=== PATIENT | male | born 1985 | race Caucasian/White ===

== ENCOUNTER 2023-12-20 22:27 | Emergency (ER) | payer OTHER, SELFPAY ==
--- NOTE | ~2023-12-20 | XR_ITS ---
EXAMINATION: XR HAND, LEFT CLINICAL INFORMATION: Pain, injury COMPARISON: None available. TECHNIQUE: PA, lateral, and oblique views of the left hand. FINDINGS: Alignment is normal and the wrist and hand. No fracture or subluxation. The bones, joints and soft tissues of the hand and wrist are unremarkable. XR/XR hand LT min 3V IMPRESSION: No acute osseous injury in the left hand.
[2023-12-20 22:57] VITALS: BP 141/90; PULSE 79; RESP 18; TEMP 36.9; O2SAT 98; BMI 19.0
[2023-12-21 02:32] VITALS: BP 135/94; PULSE 68; RESP 15; TEMP 36.9; O2SAT 96
--- OUTSIDE RECORDS SUMMARY | 2023-12-21 02:42 | XMS_ITS | Continuity of Care Document ---
Author Organization [facility] Address [address] [place] [address]- Care Team Providers Care Curb Worker Name Role Phone Therese Holguin NP Primary Care Physician [phone] Encounter [facility] Date(s): 03/23/21 - 04/22/21 [facility] [address] [place] [address]- Immunizations Given and Recorded Vaccine Date Status Refusal Reason SARS-CoV-2 (COVID-19) mRNA-1273 vaccine 07/27/20 R ecorded SARS-CoV-2 (COVID-19) mRNA-1273 vaccine 06/29/20 R ecorded Problem List Condition Effective Dates Status Health Status Inform ant ADHD(Confirmed) Active Chest pain in adult(Confirmed) Active Dysphagia(Confirmed) Active Shortness of breath(Confirmed) Active Hx of pancreatitis(Confirmed) Active Hx of viral pericarditis(Confirmed) 1 Active History of substance abuse(Confirmed) Active Impaired fasting glucose(Confirmed) Active Anxiety with depression(Confirmed) Active Testicular pain(Confirmed) 2 Active Screening for STDs (sexually transmitted diseases)(Confirmed) Active Encounter to establish care(Confirmed) Active Smoker(Confirmed) Active 1viral 2Chronic Social History Social History Type Response Tobacco Use: vapes. Sex
--- OUTSIDE RECORDS SUMMARY | 2023-12-21 02:42 | XMS_ITS | Continuity of Care Document ---
Author Organization [facility] Mateus Reynoso Heath lt Address [address] [place] [address]- Care Team Providers Care Car Jockey Name Role Phone Ghazala Cuello Primary Care Physi clinton Encounter [facility] R [id number] Date(s): 01/05/22 - 01/12/22 [facility] Adult [address] [place] [address]- Attending Physician: Ghazala Cuello Referring Physician: Steven Baldwin MD Immunizations Given and Recorded Vaccine Date Status Refusal Reason tetanus/diphtheria/pertussis, acel(Tdap) 1 01/05/22 Given SARS-CoV-2 (COVID-19) mRNA-1273 vaccine 07/27/20 R ecorded SARS-CoV-2 (COVID-19) mRNA-1273 vaccine 06/29/20 R ecorded 1Result Comment: [facility] [id number] Problem List Condition Effective Dates Status Health [...] establish care(Confirmed) Active Smoker(Confirmed) Active 1viral 2Chronic Vital Signs Most recent to oldest [Reference Range]: 1 Height 172 cm (01/05/22 7:54 AM) Weight 59.0 kg (01/05/22 7:54 AM) Oxygen Saturation [94-100 %] 100 % (01/05/22 7:54 AM) Pulse Rate [55-90 bpm] 66 bpm (01/05/22 7:54 AM) Body Mass Index [18.5-24.99] 19.94 (01/05/22 7:54 AM) Blood Pressure [90-138/55-84 mm Hg] 107/ 75mm Hg (01/05/22 7:54 AM) Blood pressure sites Arm, right (01/05/22 7:54 AM) Weight Obtained Via Standing scale (01/05/22 7:54 AM) Social History Social History Type Response Tobacco Use: vapes. Sex
--- OUTSIDE RECORDS SUMMARY | 2023-12-21 02:42 | XMS_ITS | Continuity of Care Document ---
Author Organization [facility] Edgardo Heath lt Address [address] [place] [address]- Care Team Providers Care First Cook Name Role Phone Therese Holguin NP Primary Care Physician [phone] Encounter [facility] Date(s): 03/08/21 - 03/15/21 [facility] Adult [address] [place] [address]- Encounter Diagnosis Impaired fasting glucose(Discharge Diagnosis) - 03/08/21 Hx of pancreatitis(Discharge Diagnosis) - 03/08/21 Hx of viral pericarditis(Discharge Diagnosis) - 03/08/21 Smoker(Discharge Diagnosis) - 03/08/21 Screening for STDs (sexually transmitted diseases)(Discharge Diagnosis) - 03/08/21 Anxiety with depression(Discharge Diagnosis) - 03/08/21 ADHD(Discharge Diagnosis) - 03/08/21 Attending Physician: Therese Holguin NP Immunizations Given and Recorded Vaccine Date Status Refusal Reason SARS-CoV-2 (COVID-19) mRNA-1273 vaccine 07/27/20 R ecorded SARS-CoV-2 (COVID-19) mRNA-1273 vaccine 06/29/20 R ecorded Problem List Condition Effective Dates Status Health Status Inform ant Hx of viral pericarditis(Confirmed) 1 Active 1viral Diagnosis Diagnosis Type Effective Dates Health Status Clinical Service Informant Impaired fasting glucose Discharge Diagnosis 03/08/21 Hx of pancreatitis Discharge Diagnosis 03/08/21 Hx of viral pericarditis Discharge Diagnosis 03/08/21 Smoker Discharge Diagnosis 03/08/21 Screening for STDs (sexually transmitted diseases) Discharge Diagnosis 03/08/21 Anxiety with depression Discharge Diagnosis 03/08/21 ADHD Discharge Diagnosis 03/08/21 Vital Signs Most recent to oldest [Reference Range]: 1 Height 172 cm (03/08/21 1:58 PM) Weight 64.0 kg (03/08/21 1:58 PM) Oxygen Saturation [94-100 %] 98 % (03/08/21 1:58 PM) Pulse Rate [55-90 bpm] 94 bpm *H* (03/08/21 1:58 PM) Body Mass Index [18.5-24.99] 21.63 (03/08/21 1:58 PM) Blood Pressure [90-138/55-84 mm Hg] 120/ 79mm Hg (03/08/21 1:58 PM) Temperature [96.8-100.4 DegF] 98.9 DegF (03/08/21 1:58 PM) Blood pressure sites Arm, right (03/08/21 1:58 PM) Temperature Route Oral (03/08/21 1:58 PM)
--- OUTSIDE RECORDS SUMMARY | 2023-12-21 02:42 | XMS_ITS | Continuity of Care Document ---
Author Organization [facility] Address [address] [place] [address]- Care Team Providers Care Film Casting Operator Name Role Phone Ghazala Cuello Primary Care Physi clinton Encounter [facility] Date(s): 04/25/23 - 05/25/23 [facility] Adult [address] [place] [id number] Allergies, Adverse Reactions, Alerts No Known Medication Allergies Immunizations Given and Recorded Vaccine Date Status Refusal Reason influenza virus vaccine, inactivated 03/24/23 Give n Meningococcal Conjugate Vaccine 01/18/22 Recorded tetanus/diphtheria/pertussis, acel(Tdap) 1 01/05/22 Given SARS-CoV-2 (COVID-19) mRNA-1273 vaccine 07/27/20 R ecorded SARS-CoV-2 (COVID-19) mRNA-1273 vaccine 06/29/20 R ecorded 1Result Comment: [facility] [id number] Problem List Condition Confirmation Course Effective Dates Status Health [facility] Informant ADHD Confirmed Active History of substance abuse Confirmed Active Anxiety with depression Confirmed Active Smoker Confirmed Active Social History Social History Type Response Tobacco Use: vapes. Sex Patient Care team information Care Team Personnel Name: Ghazala Cuello Position: S PCO Associate Professional Member Role: PCP Address: Address: [address] [place] [address] [place] [address]- Care Team Related Persons Name: ROSCOE JENNINGS
--- OUTSIDE RECORDS SUMMARY | 2023-12-21 02:42 | XMS_ITS | Continuity of Care Document ---
Author Organization [facility] Address [address] [place] [address]- Care Team Providers Care Sterile Supply Technician Name Role Phone Ghazala Cuello Primary Care Physi clinton Encounter [facility] Date(s): 02/24/23 - 03/26/23 [facility] Adult [address] [place] [id number] Allergies, Adverse Reactions, Alerts No Known Medication Allergies Immunizations Given and Recorded Vaccine Date Status Refusal Reason influenza virus vaccine, inactivated 03/24/23 Give n Meningococcal Conjugate Vaccine 01/18/22 Recorded tetanus/diphtheria/pertussis, acel(Tdap) 1 01/05/22 Given SARS-CoV-2 (COVID-19) mRNA-1273 vaccine 07/27/20 R ecorded SARS-CoV-2 (COVID-19) mRNA-1273 vaccine 06/29/20 R ecorded 1Result Comment: [facility] [id number] Problem List Condition Confirmation Course Effective Dates Status Health [facility] Informant ADHD Confirmed Active History of substance abuse Confirmed Active Anxiety with depression Confirmed Active Smoker Confirmed Active Social History Social History Type Response Tobacco Use: vapes. Sex Patient Care team information Care Team Personnel Name: Ghazala Cuello Position: S PCO Associate Professional Member Role: PCP Address: Address: [address] [place] [address] [place] [address]- Care Team Related Persons Name: ROSCOE JENNINGS
--- OUTSIDE RECORDS SUMMARY | 2023-12-21 02:42 | XMS_ITS | Continuity of Care Document ---
Author Organization [facility] Edgardo Heath lt Address [address] [place] [address]- Care Team Providers Care Research Worker Kitchen Name Role Phone Therese Holguin NP Primary Care Physician Encounter [facility] Date(s): 11/04/21 - 12/04/21 [facility] Adult [address] [place] [address]- Immunizations Given and Recorded Vaccine Date Status [...]
--- OUTSIDE RECORDS SUMMARY | 2023-12-21 02:42 | XMS_ITS | Continuity of Care Document ---
Author Organization [facility] Mateus Reynoso Heath lt Address [address] [place] [address]- Care Team Providers Care Farmworker General Name Role Phone Chelsie JACKSON, Therese Primary Care Physician [phone] Encounter [facility] Date(s): 03/22/21 - 03/29/21 [facility] Adult [address] [place] [address]- Encounter Diagnosis Shortness of breath(Discharge Diagnosis) - 03/22/21 Attending Physician: Therese Holguin NP Referring Physician: Steevn Baldwin MD Immunizations Given and Recorded Vaccine Date Status Refusal Reason SARS-CoV-2 (COVID-19) mRNA-1273 vaccine 07/27/20 R ecorded SARS-CoV-2 (COVID-19) mRNA-1273 vaccine 06/29/20 R ecorded Problem List Condition Effective Dates Status Health Status Inform ant ADHD(Confirmed) Active Chest pain in adult(Confirmed) Active Dysphagia(Confirmed) Active Shortness of breath(Confirmed) Active Hx of pancreatitis(Confirmed) Active Hx of viral pericarditis(Confirmed) 1 Active Impaired fasting glucose(Confirmed) Active Anxiety with depression(Confirmed) Active Testicular pain(Confirmed) 2 Active Screening for STDs (sexually transmitted diseases)(Confirmed) Active Encounter to establish care(Confirmed) Active Smoker(Confirmed) Active 1viral 2Chronic Diagnosis Diagnosis Type Effective Dates Health Status Cl inical Service Informant Shortness of breath Discharge Diagnosis 03/22/21 Vital Signs Most recent to oldest [Reference Range]: 1 2 Height 172 cm (03/23/21 2:51 PM) 172 cm (03/22/21 2:40 PM) Weight 63.2 kg (03/23/21 2:51 PM) 63.2 kg (03/22/21 2:40 PM) Oxygen Saturation [94-100 %] 98 % (03/22/21 2:40 PM) Pulse Rate [55-90 bpm] 64 bpm (03/22/21 2:40 PM) Body Mass Index [18.5-24.99] 21.36 (03/22/21 2:40 PM) Blood Pressure [90-138/55-84 mm Hg] 110/ 68mm Hg (03/22/21 2:40 PM) Respiratory Rate [16-30 br/min] 16 br/mi n (03/22/21 2:40 PM) Temperature [96.8-100.4 DegF] 98.0 DegF (03/22/21 2:40 PM) Mode of Delivery (Oxygen) Room air (03/22/21 2:40 PM) Blood pressure sites Arm, right (03/22/21 2:40 PM) Temperature Route Oral (03/22/21 2:40 PM) Weight Obtained Via Standing scale (03/22/21 2:40 PM)
--- OUTSIDE RECORDS SUMMARY | 2023-12-21 02:42 | XMS_ITS | Continuity of Care Document ---
Author Organization [facility] Heath lt Address [address] [place] [address]- Care Team Providers Care Control Clerk Head Name Role Phone Ghazala Cuello Primary Care Physi clinton [place] [facility] [place](s): 02/24/23 - 04/23/23 [facility] Adult [address] [place] [address]- Attending Physician: Ghazala Cuello Allergies, Adverse Reactions, Alerts No Known Medication Allergies Immunizations Given and Recorded Vaccine Date Status Refusal Reason influenza virus vaccine, inactivated 03/24/23 Give n Meningococcal Conjugate Vaccine 01/18/22 Recorded tetanus/diphtheria/pertussis, acel(Tdap) 1 01/05/22 Given SARS-CoV-2 (COVID-19) mRNA-1273 vaccine 07/27/20 R ecorded SARS-CoV-2 (COVID-19) mRNA-1273 vaccine 06/29/20 R ecorded 1Result Comment: [facility] [id number] Problem List Condition Confirmation Course Effective Dates Status Health [facility] Informant ADHD Confirmed Active History of substance abuse Confirmed Active Anxiety with depression Confirmed Active Smoker Confirmed Active Social History Social History Type Response Tobacco Use: vapes. Sex Patient Care team information Care Team Personnel Name: Ghazala Cuello Position: S PCO Associate Professional Member Role: PCP Address: Address: [address] [place] [address] [place] [address]- Care Team Related Persons Name: ROSCOE JENNINGS
--- OUTSIDE RECORDS SUMMARY | 2023-12-21 02:42 | XMS_ITS | Continuity of Care Document ---
Author Organization [facility] Mateus Reynoso Heath lt Address [address] [place] [address]- Care Team Providers Care Freight Inspector Name Role Phone Ghazala Cuello Primary Care Physi [facility] Encounter [facility] [place] Date(s): 03/24/23 - 03/31/23 [facility] Adult [address] [place] [address]- Encounter Diagnosis Annual physical exam(Discharge Diagnosis) - 03/24/23 Chronic low back pain with bilateral sciatica(Discharge Diagnosis) - 03/24/23 Attending Physician: Ghazala Cuello Allergies, Adverse Reactions, Alerts No Known Medication Allergies Immunizations Given and Recorded Vaccine Date Status Refusal Reason influenza virus vaccine, inactivated 03/24/23 Give n Meningococcal Conjugate Vaccine 01/18/22 Recorded tetanus/diphtheria/pertussis, acel(Tdap) 1 01/05/22 Given SARS-CoV-2 (COVID-19) mRNA-1273 vaccine 07/27/20 R ecorded SARS-CoV-2 (COVID-19) mRNA-1273 vaccine 06/29/20 R ecorded 1Result Comment: [facility] [id number] Medications No Known Medications Problem List Condition Confirmation Course Effective Dates Status Health St atus Informant ADHD Confirmed Active History of substance abuse Confirmed Active Anxiety with depression Confirmed Active Smoker Confirmed Active Diagnosis Diagnosis Type Effective Dates Health Status inical Service Informant Annual physical exam Discharge Diagnosis 03/24/23 Chronic low back pain with bilateral sciatica Discharge Diagnosis 03/24/23 Vital Signs Most recent to oldest [Reference Range]: 1 Height 172 cm (03/24/23 8:27 AM) Weight 60.9 kg (03/24/23 8:27 AM) Oxygen Saturation [94-100 %] 100 % (03/24/23 8:27 AM) Pulse Rate [55-90 bpm] 63 bpm (03/24/23 8:27 AM) Body Mass Index [18.5-24.99 kg/m2] 20.59 kg/m2 (03/24/23 8:27 AM) Blood Pressure [90-138/55-84 mm Hg] 112/ 70mm Hg (03/24/23 8:27 AM) Temperature [96.8-100.4 DegF] 98.7 DegF (03/24/23 8:27 AM) Mode of Delivery (Oxygen) Room air (03/24/23 8:27 AM) Blood pressure sites Arm, right (03/24/23 8:27 AM) Temperature Route Oral (03/24/23 8:27 AM) Weight Obtained Via Standing scale (03/24/23 8:27 AM) Social History Social History Type Response Tobacco Use: vapes. Sex Note * Clary Henderson: PERFORM, SIGN, VERIFY Event Display: Patient Education/Instruction Authored Date: [id number] [facility] *BMP Jazmín Madison Clinical Summary Name BG WARD Age 37 Years 1985 PCP Ghazala Cuello PCP Visit Date 03/24/2023 07:45:00 Additional Instructions: Scheduled Appointments?? Future Appointments ?No Future Appointments Scheduled Follow-Up Instructions ?? With: Address: When: Ghazala Cuello Within 1 year Comments: PHY Diagnosis Lumbago with sciatica, right side; Encounter for general adult medical examination without abnormalfindings Medications: Please continue your medications until treatment is completed or stopped by your provider. Discuss any questions related to medications with your provider. Allergy Info:?? No Known Medication Allergies Medications Given This Visit Future Orders ?No future orders Vital Signs Height 172 cm Weight 60.9 kg BMI 20.59 kg/m2 Blood Pressure 112 mm Hg/70 mm Hg Temperature 98.7 DegF Pulse Rate 63 bpm Respiratory Rate 02 Sat Mode of Delivery 100 %/Room air You can now view a summary of your hospital visit from the comfort of your home through a free online portal called ecobee. ecobee is a website that allows you to securely view your medical information including discharge summary, medications and follow-up visits. ??You can alsosend a secure electronic message to your doctor???s office to request appointments, renew medications or just ask a question. You can enroll at [email or web address] or register during your next office visit. Disclaimer:?? The information provided is of a general nature and is intended to be used in conjunction with the recommendations and advice of your health care practitioner. ??Every effort has been made to ensure that the information provided is accurate and complete at the time it is provided to you however, as your needs change, or, as new ??information becomes available, different or additional instructions may be required. If you have questions, please consult with your primary care provider or pharmacist, as appropriate. ??This information is not intended to serve as substitution for assessment and evaluation by a qualified health care provider. If you do not have a primary care provider, you may find a [facility] provider by calling [facility] [employer] Link at [phone]. [facility], in keeping with [facility] guidance, no longer requires face masks for staff, patientsor visitors in most situations. Similar to time spent indoors at other locations, there is the chance that you were exposed to respiratory viruses during your time with us (such as flu or COVID-19).? If you develop symptoms concerning for a viral respiratory infection, please seek testing (and treatment if indicated) from your medical provider or home test kit. For information about the plan of care including goals and instructions for your diagnosis, please see the patient education orders section of this document. Patient Education Materials?? The content of this educational material or handout may have been modified, supplemented, or adapted from its original content and format to support your individualized medical care. 4 Steps for Eating Healthier Changing the way you eat can improve your health. It can lower your cholesterol and blood pressure,and help you stay at a healthy weight. Your diet doesn???t have to be bland and boring to be healthy. Just watch your calories and follow these steps: 1. Eat fewer unhealthy fats ??? Choose more fish and lean meats instead of fatty cuts of meat. ??? Skip butter and lard, and use less margarine. ??? Pass on foods that have palm, coconut, or hydrogenated oils. ??? Eat fewer high-fat dairy foods like cheese, ice cream, and whole milk. ??? Get a heart-healthy cookbook and try some low-fat recipes. 2.??Go light on salt ??? Keep the saltshaker off the table. ??? Limit high-salt ingredients, such as soy sauce, bouillon, and garlic salt. ??? Instead of adding salt when cooking, season your food with herbs and flavorings. Try lemon, garlic, and onion. ??? Limit convenience foods, such as boxed or canned foods and restaurant food. ??? Read food labels and choose lower-sodium options. 3. Limit sugar ??? Pause before you add sugars to pancakes, cereal, coffee, or tea. This includes white and brown table sugar, syrup, honey, and molasses. Cut your usual amount by half. ??? Use non-sugar sweeteners. Stevia, aspartame, and sucralose can satisfy a sweet tooth without adding calories. ??? Swap out sugar-filled soda and other drinks. Buy sugar-free or low-calorie beverages. Remember water is always the best choice. ??? Read labels and choose foods with less added sugar. Keep in mind that dairy foods and foods with fruit will have some natural sugar. ??? Cut the sugar in recipes by 1/3 to 1/2. Boost the flavor with extracts like almond, vanilla, ororange. Or add spices such as cinnamon or nutmeg. 4. Eat??more fiber ??? Eat fresh fruits and vegetables every day. ??? Boost your diet with whole grains. Go for oats, whole-grain rice, and bran. ??? Add beans and lentils to your meals. ??? Drink more water to match your fiber increase. This is to help prevent constipation. ?? 0873-5598 [employer] [place]. [address] [place] [address]. All rights reserved. This information is not intended as a substitute for professional medical care. Always follow your healthcare professional's instructions. Prevention Guidelines, Men Ages 18 to 39 Screening tests and vaccines are an important part of managing your health. Health counseling is essential, too. Below are guidelines for these, for men ages 18 to 39. Talk with your healthcare provider to make sure you???re up-to-date on what you need. Screening Who needs it How often Alcohol misuse All men in this age group At routine exams Blood pressure All men in this age group Every 2 years if your blood pressure is less than 120/80 mm Hg; yearly if your systolic blood pressure is 120 to 139 mm Hg, or your diastolic blood pressure reading is 80 to 89 mm Hg Depression All men in this age group At routine exams Diabetes mellitus, type 2 Adults who have no symptoms but are overweight or obese and have 1 or more other risk factors for diabetes At least every 3 years Hepatitis C If at increased risk At routine exams High cholesterol or triglycerides All men ages 35 and older, and younger men at high risk for coronary artery disease At least every 5 years HIV All men At routine exams Obesity All men in this age group At routine exams Syphilis Men at increased risk for infection ??? talk with your healthcare provider At routine exams Tuberculosis Men at increased risk for infection ??? talk with your healthcare provider Check with your healthcare provider Vision All men in this age group Every 5 to 10 years if no risk factors for eye disease Vaccines1 Who needs it How often Chickenpox (varicella) All men in this age group who have no record of this infection or vaccine 2 doses; the second dose should be given at least 4 weeks after the first dose Hepatitis A Men at increased risk for infection ??? talk with your healthcare provider 2 doses given at least 6 months apart Hepatitis B Men at increased risk for infection ??? talk with your healthcare provider 3 doses over 6 months; second dose should be given 1 month after the first dose; the third dose should be given at least 2 months after the second dose and at least 4 months after the first dose Haemophilus influenzae Type B (HIB) Men at increased risk for infection ??? talk with your healthcare provider 1 to 3 doses Human papillomavirus (HPV4) All men through age 21 years Men ages 22 to 26 who are at risk 3 doses; the second dose should be given 1 to 2 months after the first dose and the third dose given 6 months after the first dose Influenza (flu) All men in this age group Once a year Measles, mumps, rubella (MMR) All men in this age group who have no record of these infections or vaccines 1 or 2 doses through age 55 Meningococcal Men at increased risk for infection ??? talk with your healthcare provider 1 or more doses Pneumococca (PCV13) and Pneumococcal (PPSV23) Men at increased risk for infection ??? talk with your healthcare provider PCV13: 1 dose ages 19 to 65 (protects against 13 types of pneumococcal bacteria) PPSV23: 1 to 2 doses through age 64, or 1 dose at 65 or older (protects against 23 types of pneumococcal bacteria) Tetanus/diphtheria/pertussis (Td/Tdap) booster All men in this age group A one-time Tdap booster after age 18, then Td every10 years Counseling Who needs it How often Diet and exercise Overweight or obese people When diagnosed, and then at routine exams Use of tobacco and the health affects it can cause All men in this age group Every visit Sexually transmitted infection prevention Men who are sexually active At routine exams Skin cancer Prevention of skin cancer in fair-skinned adults through age 24 At routine exams 1Those who are 18 years of age, who are not up-to-date on their childhood immunizations, should receive all appropriate catch-up vaccines recommended by the CDC. ?? 6984-9344 [employer] [place]. [address] [place] [address]. All rights reserved. This information is not intended as a substitute for professional medical care. Always follow your healthcare professional's instructions. Getting a Flu Vaccination The flu (influenza) is caused by a virus that is easily spread. A flu vaccine is your best chance to avoid the flu. The vaccine is given in the form of a shot (injection) or a nasal spray. It???s best to get vaccinated each year when the flu vaccine is available in your area. This can be done at your health care provider???s office or a health clinic. Drugstores, senior centers, and workplaces often offer flu vaccinations, too. If you want to know when the vaccine is available or if you have questions about getting vaccinated, ask your health care provider. Flu facts ??? The flu vaccine will not give you the flu. ??? The flu is caused by a virus. It can???t be treated with antibiotics. ??? The flu can be life-threatening, especially for people in high-risk groups. ??? Influenza is not the same as ???stomach flu,?? the 24-hour bug that causes vomiting and diarrhea. This is most likely due to a GI (gastrointestinal) infection???not the flu. Flu symptoms Flu symptoms tend to come on quickly. Fever, headache, fatigue, cough, sore throat, runny nose, andmuscle aches are symptoms of the flu. Children may have upset stomach or vomiting, but adults usually don???t. Some symptoms, such as fatigue and cough, can last a few weeks. How a flu vaccine protects you There are many strains (types) of flu viruses. Medical experts predict which??strains are most likely to make people sick each year. Flu vaccines??are made from these strains. With the shot, inactivated (???killed?? ) flu viruses are injected into your body. With the nasal spray, live and weakened viruses are sprayed into your nose. The viruses in both vaccines cannot make you sick. But they do prompt the body to make antibodies to fight these flu strains. If you???re exposed to the same strains later in the flu season, the antibodies will fight off the virus. Your health care provider can tell you which type of flu vaccine is right for you. Who should get the flu vaccination? The Centers for Disease Control and Prevention (CDC) recommends that infants over the age of 6 months and all children and adults should get a flu shot every year. Some people are at an increased risk of developing serious complications from the flu. It's extremely important that these people get the vaccine. They include those with: ??? Long-term heart and lung conditions ??? Other serious medical conditions: ??? Endocrine disorders, like diabetes ??? Kidney or liver disorders ??? Weak immune system from disease or medical treatment, for example those with HIV or AIDS or those taking long-term steroids or medications to treat cancer ??? Blood disorders, such as sickle cell disease It is also very important that others that have an increased risk of being exposed to the flu or are around people with increased risk of complications get the vaccine. They are: ??? Health care providers and other staff that provide care in hospitals, nursing homes, home health, and other facilities ??? Household members, including children of people in high-risk groups Types of flu vaccines The flu vaccine is available as a shot and as a nasal spray. Your health care provider will recommend the vaccine that is best for you. ??? The shot is available in a few different forms. There is a high-dose vaccine for those over age65 and a vaccine for those with egg allergies. It's safe for most people. Talk with your provider if you have had: ??? A severe allergic reaction to a previous flu vaccine ??? Guillain-barre syndrome (a severe paralyzing condition) ??? The nasal spray is recommended for people from 2 to 49 years of age. It should not be given to adults who: ??? Are ??? Have weak immune systems ??? Have egg allergies ??? Will be in close contact with someone with a weak immune system ??? Have taken antiviral medication in the past 2 days ?? 7783-1865 [employer] [place]. [address] [place] [address], [place] [address]. All rights reserved. This information is not intended as a substitute for professional medical care. Always follow your healthcare professional's instructions. Patient Care team information Care Team Personnel Name: Ghazala Cuello Position: [facility] PCO Associate Professional Member Role: PCP Address: Address: [address] [place] [id number] Care Team Related Persons Name: ROSCOE JENNINGS
--- OUTSIDE RECORDS SUMMARY | 2023-12-21 02:42 | XMS_ITS | Continuity of Care Document ---
Author Organization [facility] Heath Address [address] [place] [address]- Care Team Providers Care Lodging House Keeper Name Role Phone Ghazala Cuello Primary Care Physi [place] [facility] [place] Date(s): 03/24/23 - 04/23/23 [facility] Adult [address] [place] [id number] Attending Physician: Admtr, Ar8 Admitting Physician: Admtr, Ar8 Referring Physician: Admtr, Ar8 Allergies, Adverse Reactions, Alerts No Known Medication Allergies Immunizations Given and Recorded Vaccine Date Status Refusal Reason influenza virus vaccine, inactivated 03/24/23 Give n Meningococcal Conjugate Vaccine 01/18/22 Recorded tetanus/diphtheria/pertussis, acel(Tdap) 1 01/05/22 Given SARS-CoV-2 (COVID-19) mRNA-1273 vaccine 07/27/20 R ecorded SARS-CoV-2 (COVID-19) mRNA-1273 vaccine 06/29/20 R ecorded 1Result Comment: [facility] [id number] Problem List Condition Confirmation Course Effective Dates Status Health St [facility] Informant ADHD Confirmed Active History of substance abuse Confirmed Active Anxiety with depression Confirmed Active Smoker Confirmed Active Social History Social History Type Response Tobacco Use: vapes. Sex Patient Care team information Care Team Personnel Name: Ghazala Cuello Position: S PCO Associate Professional Member Role: PCP Address: Address: [address] [place] [address] [place] [address]- Care Team Related Persons Name: ROSCOE JENNINGS
--- OUTSIDE RECORDS SUMMARY | 2023-12-21 02:43 | XMS_ITS | Continuity of Care Document ---
Author Organization [facility] Heath lt Address [address] [place] [address]- Care Team Providers Care Boat Outfitter Name Role Phone Therese Holguin NP Primary Care Physician [phone] Encounter [facility] [place] Date(s): 05/07/21 - 06/06/21 [facility] Adult [address] [place] [address]- Attending Physician: Uriel Alvarez Admitting Physician: Uriel Alvarez Referring Physician: AdmtrUriel Immunizations Given and Recorded Vaccine Date Status [...]
--- OUTSIDE RECORDS SUMMARY | 2023-12-21 02:43 | XMS_ITS | Continuity of Care Document ---
Author Organization [facility] Address [address] [place] [address]- Care Team Providers Care Call Center Support Consultant Name Role Phone Therese Holguin NP Primary Care Physician Encounter [facility] Date(s): 03/08/21 - 04/07/21 [facility] [address] [place] [address]- Immunizations Given and Recorded Vaccine Date Status [...]
--- OUTSIDE RECORDS SUMMARY | 2023-12-21 02:43 | XMS_ITS | Continuity of Care Document ---
Author Organization [facility] Heath Address [address] [place] [address]- Care Team Providers Care Home Theater Experience Expert Name Role Phone Ghazala Cuello Primary Care Physi [place] En[place] [facility] [place] [facility] [id number] Date(s): 12/30/21 - 02/11/22 [facility] Adult [address] [place] [id number] Attending Physician: Ghazala Cuello Immunizations Given and Recorded Vaccine Date Status Refusal Reason tetanus/diphtheria/pertussis, acel(Tdap) 1 01/05/22 Given SARS-CoV-2 (COVID-19) mRNA-1273 vaccine 07/27/20 R ecorded SARS-CoV-2 (COVID-19) mRNA-1273 vaccine 06/29/20 R ecorded 1Result Comment: [facility] [id number] Problem List Condition Effective Dates Status Health [...] History Type Response Tobacco Use: vapes. Sex Care Team Personnel Name: Ghazala Cuello Address: [address] [place] [address] Adult Medicine [place], [place] [address]
--- OUTSIDE RECORDS SUMMARY | 2023-12-21 02:43 | XMS_ITS | Continuity of Care Document ---
Author Organization [facility] N[facility] d[facility] Address [address] [place] [address]- Care Team Providers Care Customer Relations Specialist Name Role Phone Not on Staff, PCP Primary Care Physician Unavail able Encounter [facility] [id number] Date(s): 12/18/20 - 01/17/21 [facility] Adult [facility] [address] [place] [address]- Attending Physician: Uriel Alvarez Admitting Physician: Uriel Alvarez Referring Physician: Uriel Alvarez
--- OUTSIDE RECORDS SUMMARY | 2023-12-21 02:43 | XMS_ITS | Continuity of Care Document ---
Author Organization [facility] Heath Address [address] [place] [address]- Care Team Providers Care Tablet Making Machine Operator Name Role Phone Ghazala Cuello Primary Care Physi [place] [facility] [place] Date(s): 07/12/22 - 08/11/22 [facility] Adult [address] [place] [id number] Immunizations Given and Recorded Vaccine Date Status Refusal Reason tetanus/diphtheria/pertussis, acel(Tdap) 1 01/05/22 Given SARS-CoV-2 (COVID-19) mRNA-1273 vaccine 07/27/20 R ecorded SARS-CoV-2 (COVID-19) mRNA-1273 vaccine 06/29/20 R ecorded 1Result Comment: [facility] [id number] Problem List Condition Confirmation Course Effective Dates Status Health St atus Informant ADHD Confirmed Active Chest pain in adult Confirmed Active Dysphagia Confirmed Active Shortness of breath Confirmed Active Hx of pancreatitis Confirmed Active Hx of viral pericarditis 1 Confirmed Active History of substance abuse Confirmed Active Impaired fasting glucose Confirmed Active Anxiety with depression Confirmed Active Testicular pain 2 Confirmed Active Screening for STDs (sexually transmitted diseases) Confirmed Active Encounter to establish care Confirmed Active Smoker Confirmed Active 1viral 2Chronic Social History Social History Type Response Tobacco Use: vapes. Sex Patient Care team information Care Team Personnel Name: Ghazala Cuello Position: S PCO Associate Professional Member Role: PCP Address: Address: [address] [place] [address] [place] [address]- Care Team Related Persons Name: ROSCOE JENNINGS
--- OUTSIDE RECORDS SUMMARY | 2023-12-21 02:43 | XMS_ITS | Continuity of Care Document ---
Author Organization [facility] Heath Address [address] [place] [address]- Care Team Providers Care Hand Glove Cleaner Name Role Phone Ghazala Cuello Primary Care Physi [place] [facility] [place](s): 01/12/22 - 02/11/22 [facility] Adult [address] [place] [id number] Attending Physician: Uriel Alvarez Admitting Physician: AdmtrUriel Referring Physician: Admtr, Ar8 Immunizations Given and Recorded Vaccine Date Status Refusal Reason tetanus/diphtheria/pertussis, acel(Tdap) 1 01/05/22 Given SARS-CoV-2 (COVID-19) mRNA-1273 vaccine 07/27/20 R ecorded SARS-CoV-2 (COVID-19) mRNA-1273 vaccine 06/29/20 R ecorded 1Result Comment: [facility] [id number] Problem List Condition Effective Dates Status Health [...] Care Team Personnel Name: Ghazala Cuello Address: [address] [place] [address] Adult Medicine [place], [place] [address]
--- OUTSIDE RECORDS SUMMARY | 2023-12-21 02:43 | XMS_ITS | Continuity of Care Document ---
Author Organization [facility] Address [address] [place] [phone]- Care Team Providers Care Office Manager Executive Assistant Name Role Phone Not on Staff, PCP Primary Care Physician Unavail able Encounter [facility] [id number] Date(s): 12/10/20 - 01/17/[address] [address]- Attending Physician: Keila Spain NP Referring Physician: Keila Spain NP
--- OUTSIDE RECORDS SUMMARY | 2023-12-21 02:43 | XMS_ITS | Continuity of Care Document ---
Author Organization [facility] Address [address] [place] [address]- Care Team Providers Care Process Area Supervisor Name Role Phone Therese Holguin NP Primary Care Physician [place] [facility] [place] 06/[place]/21 [facility] Adult [address] [place] [address]- Attending Physician: Therese Holguin NP Referring Physician: Steven Baldwin MD Immunizations Given [...]
--- OUTSIDE RECORDS SUMMARY | 2023-12-21 02:43 | XMS_ITS | Continuity of Care Document ---
Author Organization [facility] Address [address] [place] [address]- Care Team Providers Care Case Repairer Name Role Phone Not on Staff, PCP Primary Care Physician Unavail able [id number] Date(s): 12/01/20 - 01/09/21 [facility] Adult [address] [address]- Attending Physician: Naeem Tuttle MD
--- OUTSIDE RECORDS SUMMARY | 2023-12-21 02:43 | XMS_ITS | Continuity of Care Document ---
Author Organization [facility] Address [address] [place] [phone]- Care Team Providers Care Inspector Circuitry Negative Name Role Phone Ghazala Cuello Primary Care Physi clinton En[place] [facility] [place](s): 01/03/22 - 02/02/22 [facility] Adult [address] [place] [id number] Immunizations Given and Recorded Vaccine Date Status Refusal Reason tetanus/diphtheria/pertussis, acel(Tdap) 1 01/05/22 Given SARS-CoV-2 (COVID-19) mRNA-1273 vaccine 07/27/20 R ecorded SARS-CoV-2 (COVID-19) mRNA-1273 vaccine 06/29/20 R ecorded 1Result Comment: [facility] [id number] Problem List Condition Effective Dates Status Health [...] Care Team Personnel Name: Ghazala Cuello Address: [address] [place] [address] Adult Medicine [place], [place] [address]
--- OUTSIDE RECORDS SUMMARY | 2023-12-21 02:43 | XMS_ITS | Continuity of Care Document ---
Author Organization [facility] Address [address] [place] [address]- Care Team Providers Care Bobbin Sorter Name Role Phone Ghazala Cuello Primary Care Physi [place] [facility] [place]21 - 01/29/22 [facility] Adult [address] [place] [id number] Immunizations Given and Recorded Vaccine Date Status Refusal Reason tetanus/diphtheria/pertussis, acel(Tdap) 1 01/05/22 Given SARS-CoV-2 (COVID-19) mRNA-1273 vaccine 07/27/20 R ecorded SARS-CoV-2 (COVID-19) mRNA-1273 vaccine 06/29/20 R ecorded 1Result Comment: [facility] [id number] Problem List Condition Effective Dates Status Health [...] Care Team Personnel Name: Ghazala Cuello Address: [address] [place] [address] Adult Medicine [place], [place] [address]
--- NOTE | 2023-12-21 06:46 | ED_ITS ---
HPI - Extremity Problem General Chief complaint: Extremity Injury, Upper Stated complaint: L fing inj Time Seen by Provider: 12/21/23 06:45 Source: patient Mode of arrival: ambulatory Limitations: no limitations History of Present Illness ED Provider: Shawanda Knox PA-C HPI Narrative: Patient is a 38 year old assigned male at with no reported medical history presenting to the emergency department today with left index finger pain. Patient states that he bumped his left index finger on a metal piece of his bike and is having pain. Patient denies any dizziness, lightheadedness, abdominal pain, nausea, vomiting, fever, chills, blurry vision, double vision, loss of vision, chest pain, difficulty breathing, shortness of breath, back pain, night sweats, pain with urination, increased urinary frequency, increased urinary urgency, blood in his urine or stool, syncope or a near syncopal episode, bowel incontinence, bladder incontinence, or any other complaints at this time. Onset (ago): hour(s) Pain Consistency: constant Location: left (index) Severity scale (1-10): 3 Quality: aching and dull Radiation: none Relieving factors: nothing Exacerbating factors: nothing Associated symptoms: denies other symptoms Related Data Allergies Allergy/AdvReac Type Severity Reaction Status Date / Time No Known Allergies Allergy Verified 12/20/23 23:01 Review of Systems 2 Constitutional: Constitutional: Reports no additional constitutional complaints, Denies chills, Denies fever(s) and Denies night sweats Eyes: Eyes: Reports no additional eye complaints, Denies blurry vision, Denies change in vision, Denies diplopia, Denies eye discharge, Denies loss of vision and Denies eye pain ENT: Denies dizziness Cardiovascular: Cardiovascular: Reports no additional cardiovascular complaints, Denies chest pain, Denies lightheadedness, Denies Loss of Consciousness and Denies dyspnea Respiratory: Respiratory: Reports no additional respiratory complaints and Denies dyspnea Gastrointestinal: Gastrointestinal: Reports no additional gastrointestinal complaints, Denies abdominal pain, Denies melena, Denies hematochezia, Denies change in bowel habits and Denies change in stool character Genitourinary: Genitourinary: Reports no additional male genitourinary complaints, Denies hematuria, Denies oliguria, Denies difficulty urinating, Denies dysuria, Denies urinary frequency, Denies urinary hesitancy, Denies urinary incontinence and Denies urinary urgency Musculoskeletal: Musculoskeletal: Reports no additional musculoskeletal complaints, Denies numbness and Denies tingling Comments: left index finger pain Neurologic: Denies dizziness, Denies loss of vision, Denies numbness and Denies tingling Psychiatric: Psychiatric: Reports no additional psychiatric complaints Endocrine: Endocrine: Reports no additional endocrine complaints Hematologic/Lymphatic: Hematologic/Lymphatic: Reports no additional hematologic/lymphatic complaints Allergic/Immunologic: Allergic/Immunologic: Reports no additional allergic/immunologic complaints [facility] Past Medical History Attestation statement: The following information was validated with the patient. Source: old records reviewed and nursing notes reviewed Social History Social History Smoked in Last 30 Days: Yes Substance Use Type: Marijuana Advance Directives: No Advance Directives Information Provided: Yes Physical Exam 2 Vital Signs: Vital Signs: Last Vital Signs Temp 98.0 F 12/21/23 08:34 Pulse 58 12/21/23 08:34 Resp 14 12/21/23 08:34 BP 131/87 12/21/23 08:34 Pulse Ox 97 12/21/23 08:34 O2 Del Method Room Air 12/21/23 08:34 BMI result Body Mass Index 19.0 Const: General: cooperative, no acute distress, alert and awake Nutritional Appearance: well nourished Orientation/consciousness: patient oriented x3 Limitations: no limitations HEENT: Head: Yes normal to inspection and Yes atraumatic Ears: hearing grossly normal bilaterally and external ears normal General nose exam: Normal external nose present, no nasal discharge noted and no epistaxis Face and sinus: Yes normal facial exam, No abrasion and No laceration Mouth: Normal oral and palatal mucosa present, no drooling and no muffled voice Eyes: General: appearance normal, both eyes and all related structures P eriorbital: periorbital findings normal Eyelids: Yes eyelids normal C onjunctivae: conjunctivae normal Pupils: Equal, round and reactive pupils present EOM: EOMs intact bilaterally Neck: Neck: Yes normal visual inspection, Yes full ROM and Yes no lymphadenopathy Chest: Chest palpation & inspection: normal inspection of the chest Resp: Effort & Inspection: normal respiratory effort and able to speak in complete sentences GI: Inspection: Yes normal to inspection Neuro: General: patient oriented x3 and moves all extremities Cranial nerves: Yes Equal, round and reactive pupils present Cognition (Neuro): n ormal cognition Extrem: General: Yes full ROM and Yes capillary refill normal Hand/finger images: 1. small abrasion - no active bleeding, no open areas Psych: Appearance: grossly normal Mental Status: mental status grossly normal Affect: normal affect Attitude: cooperative Thought process: N ormal thought process present Thought content: Normal thought content present Insight: Good insight present (Psych) Medical Decision Making Medical Decision Making MDM Narrative: Patient is a 38 year old assigned male at with no reported medical history presenting to the emergency department today with left index finger pain. Patient's physical exam was as noted in the physical exam portion of this note. Patient's left hand x-ray showed no acute process. I explained my physical exam findings as well as all test results to the patient. I answered all questions asked by the patient. I stressed the importance of the patient taking his medication as directed (either prescribed or as the over the counter packaging recommends). I stressed the importance of the patient following up with his primary care provider. I stressed the importance of the patient returning to the emergency department immediately if his symptoms were to worsen or if he were to develop any dizziness, shortness of breath, difficulty breathing, chest pain, blurry vision, loss of vision, nausea, vomiting, abdominal pain, fever, chills, back pain, or any other complaints. Patient verbalized agreement and understanding with this treatment plan and discharge. Differential Diagnosis Differential Diagnoses: The differential diagnosis associated with the presentation includes Left index finger pain Left index finger sprain Left index finger strain Left index finger fx Admission/Observation Consideration of admission/observation: Escalation of care including admission/observation considered Patient would have been admitted to the hospital had his work up had any findings where hospital admission was appropriate and his clinical presentation warranted hospital admission. Independent Interpretation I performed an independent interpretation of an: Plain X-Ray Interpretation: My interpretation is in agreement with the radiologist's impression of this imaging study. - EXAMINATION: XR HAND, LEFT CLINICAL INFORMATION: Pain, injury COMPARISON: None available. TECHNIQUE: PA, lateral, and oblique views of the left hand. FINDINGS: Alignment is normal and the wrist and hand. No fracture or subluxation. The bones, joints and soft tissues of the hand and wrist are unremarkable. XR/XR hand LT min 3V IMPRESSION: No acute osseous injury in the left hand. Dictated By: Dickson Barber MD Signed By: Electronically signed by Dickson Barber MD 12/21/23 0814 Radiology Impression Discussion of test interpretation with radiology: I have reviewed the radiologist's reading. Discharge Plan Discharge Clinical Impression: Finger sprain, Contusion of finger Patient Disposition: Home, Self-Care Instructions: Jammed Finger (ED), Contusion in Adults (ED) Additional Instructions: Follow up with your primary care provider. Return to the emergency department immediately if your symptoms worsen or if you develop any dizziness, shortness of breath, difficulty breathing, chest pain, blurry vision, loss of vision, nausea, vomiting, abdominal pain, fever, chills, back pain, or any other complaints. Ref[place]: [facility] [place] (Call to establish and follow up with a primary care provider. If you already have a primary care provider, please follow up with them.) [facility] [place] [facility] [place] [facility] [place] Group] Stand Alone Forms: Work/School Release Interventions: ED Discharge Assessment Last Done: 12/21/23 08:34 Discharge Date/Time: 12/21/23 08:35 Print Language: Kazakh
[2023-12-21 07:52] VITALS: BP 131/87; PULSE 58; RESP 14; TEMP 36.7; O2SAT 97
[2023-12-21 08:34] VITALS: BP 131/87; PULSE 58; RESP 14; TEMP 36.7; O2SAT 97
== END 2023-12-21 08:35 | disposition home or self-care (01) ==
PROVIDERS: Emergency Provider Emergency Medicine Emergency Medical Services
DX: S63.611A Unspecified sprain of left index finger, initial encounter (principal); W22.8XXA Striking against or struck by other objects, initial encounter; Y93.9 Activity, unspecified; Y92.9 Unspecified place or not applicable; Y99.9 Unspecified external cause status; M79.645 Pain in left finger(s)
CPT/HCPCS: 73130; 99283; 99284